=== PATIENT | male | born 1995 | race Caucasian/White ===

== ENCOUNTER 2018-08-09 11:52 | Day surgery (SDC) | payer BC ==
[2018-08-09] MEDS ORDERED: PROPOFOL 40 ML ×2 (13:44→15:01)
[2018-08-09] MEDS ORDERED: ALBUTEROL HFA 8 GM INHALER (13:44)
[2018-08-09] MEDS ORDERED: ONDANSETRON 4 MG INJ IV ×2 (14:00→15:00)
[2018-08-09] MEDS ORDERED: hydrALAzine 20 MG INJ IV (15:00)
[2018-08-09] MEDS ORDERED: HYDROmorphONE 1 MG/5 ML IV SYRINGE IV ×3 (15:00)
[2018-08-09] MEDS ORDERED: FENTAnyl 50 MCG/ML VIAL IV ×3 (15:00)
[2018-08-09] MEDS ORDERED: IPRATROPIUM (NEB) 0.5 MG/2.5 ML AMP HHN (15:00)
[2018-08-09] MEDS ORDERED: ALBUTEROL 0.083% (NEB) 2.5 MG/3 ML AMP HHN (15:00)
[2018-08-09] MEDS ORDERED: MEPERIDINE 25 MG INJ IV (15:00)
[2018-08-09] MEDS ORDERED: MIDAZOLAM 1 MG/ML 2 ML INJ IV (15:00)
[2018-08-09] MEDS ORDERED: LABETALOL HCL 20MG INJ IV (15:00)
[2018-08-09] MEDS ORDERED: DIPHENHYDRAMINE 50 MG INJ IV (15:00)
[2018-08-09] MEDS ORDERED: EPHEDrine SULFATE 50 MG/5 ML SYG IV (15:00)
[2018-08-09] MEDS ORDERED: OXYCODONE/ACETAMINOPHEN (5/325) TAB PO ×2 (15:00)
[2018-08-09] MEDS ORDERED: TRIMETHOBENZAMIDE 100 MG/ML VIAL IM (15:00)
[2018-08-09] MEDS ORDERED: LIDOCAINE 100 MG SYRINGE (15:01)
[2018-08-09] MEDS ORDERED: FENTAnyl 50 MCG/ML VIAL (15:02)
== END 2018-08-09 15:58 | disposition home or self-care (01) ==
LOC: GIL 11:52
DX: K21.0 Gastro-esophageal reflux disease with esophagitis (principal); K44.9 Diaphragmatic hernia without obstruction or gangrene
CPT/HCPCS: 43239; 88305; 88312; 88313